=== PATIENT | male | born 1960 | race Caucasian/White ===

== ENCOUNTER 2016-12-05 21:56 | Emergency (ER) | payer OTHER ==
[2016-12-05 22:19] LABS: BASOPHIL 0.2 % (0-2); EOSINOPHIL 0.7 % (0-5); HCT 38.6 % (42.0-52.0); HGB 13.6 g/dl (13.2-18.0); LYMPHOCYTE 26.6 % (15-48); MCH 30.5 pg (25.0-31.0); MCHC 35.2 g/dL (32.0-36.0); MCV 86.5 fL (78.0-100.0); MONOCYTE 8.4 % (0-12); MPV 9.4 fL (6.0-9.5); NEUTROPHIL 64.1 % (41-80); PLT 377 K/uL (150-400); RBC 4.46 M/uL (4.70-6.00); RDW 13.2 % (11.5-14.0); WBC 10.5 K/uL (4.0-10.5)
[2016-12-05 23:15] LABS: ALBUMIN 4.1 g/dL (3.5-5.0); BILIRUBIN - TOTAL 0.2 mg/dL (0.1-1.0); CREATININE 0.9 mg/dL (0.7-1.2); GLOBULIN (CALCULATION) 2.2 g/dL (2.2-4.2); POTASSIUM 3.5 mmol/L (3.5-5.1); TOTAL PROTEIN 6.3 g/dL (6.4-8.3)
[2016-12-06 01:29] LABS: CREATININE 0.8 mg/dL (0.7-1.2); POTASSIUM 3.7 mmol/L (3.5-5.1)
== END 2016-12-06 02:41 | disposition home or self-care (01) ==
LOC: FER 21:56
PROVIDERS: Emergency Medicine Emergency Medical Services
DX: R09.02 Hypoxemia (principal); R06.02 Shortness of breath; T50.6X5A Adverse effect of antidotes and chelating agents, initial encounter; I10 Essential (primary) hypertension; F10.10 Alcohol abuse, uncomplicated; E86.9 Volume depletion, unspecified; F17.210 Nicotine dependence, cigarettes, uncomplicated; Z87.19 Personal history of other diseases of the digestive system; Z79.899 Other long term (current) drug therapy; Y90.6 Blood alcohol level of 120-199 mg/100 ml
CPT/HCPCS: 36415; 36600; 71010; 80048; 80053; 82803; 84484; 85025; 85379; 93005; 94640; 94760; G0480; J2405